=== PATIENT | female | born 1980 | race African-American/Black ===

== ENCOUNTER 2016-10-09 19:45 | Emergency (ER) | payer MEDICAID ==
[2016-10-09 20:03] VITALS: BP 127/75; PULSE 84; TEMP 98.4; BMI 32.2
== END 2016-10-09 20:44 | disposition left against medical advice (07) ==
LOC: EDMC 19:45
DX: Z76.0 Encounter for issue of repeat prescription (principal)
CPT/HCPCS: 99282